=== PATIENT | male | born 2000 | race Hispanic/Latino ===

== ENCOUNTER 2020-08-13 21:59 | Emergency (ER) | payer OTHER ==
[2020-08-13] MEDS ORDERED: DiphenhydrAMINE HCL 50 MG/ML VIAL ONE (22:53)
[2020-08-13] MEDS ORDERED: HYDROXYZINE HCL 25 MG TABLET ONE (22:54)
== END 2020-08-13 23:13 | disposition home or self-care (01) ==
LOC: EDH 21:59
DX: F41.1 Generalized anxiety disorder (principal)
CPT/HCPCS: 96372; 99283; J1200

== ENCOUNTER 2024-05-08 17:20 | Emergency (ER) | payer SELFPAY ==
[~2024-05-08] VITALS: Ht 175.3 cm; Wt 81.6 kg
[2024-05-08 18:09] LABS: BASOPHILS # (AUTO) 0.03 K/uL (0.00-0.20); BASOPHILS % (AUTO) 0.5 % (0.0-5.0); EOSINOPHILS # (AUTO) 0.03 K/uL (0.00-0.70); EOSINOPHILS % (AUTO) 0.5 % (0.0-8.0); HEMATOCRIT 48.4 % (42-54); IMMATURE GRANULOCYTE ABSOLUTE 0.02 K/uL (0-1); LYMPHOCYTES # (AUTO) 1.5 K/uL (1.0-4.8); LYMPHOCYTES % (AUTO) 24.4 % (21.0-51.0); MEAN CORPUSCULAR HEMOGLOBIN 29.9 pg (27.0-33.0); MEAN CORPUSCULAR HGB CONC 34.7 g/dL (32.0-36.0); MEAN CORPUSCULAR VOLUME 86.3 fL (79-99); MONOCYTES # (AUTO) 0.4 K/uL (0.1-1.0); MONOCYTES % (AUTO) 6.5 % (3.0-13.0); NEUTROPHILS # (AUTO) 4.2 K/uL (1.8-7.7); NEUTROPHILS % (AUTO) 67.8 % (40.0-77.0); PLATELET COUNT (AUTO) 244 K/uL (130-400); RED BLOOD CELL COUNT(AUTO) 5.61 MIL/uL (4.50-6.20); RED CELL DISTRIBUTION WIDTH 12.8 % (11.0-15.5); WHITE BLOOD COUNT (AUTO) 6.2 K/uL (4.8-10.8)
[2024-05-08 18:16] LABS: CREATININE 0.9 mg/dL (0.5-1.3)
[2024-05-08] MEDS: ondanSETRON 4MG INJ IVP STA (18:44)
[2024-05-08] MEDS: leveTIRACEtam 500 MG/5 ML SD VIAL IV STA (19:17)
[2024-05-08 19:42] VITALS: BP 122/65; PULSE 76; RESP 16; TEMP 98.1; O2SAT 97
== END 2024-05-08 19:56 | disposition home or self-care (01) ==
LOC: EDH 17:20
DX: R56.9 Unspecified convulsions (principal); Z91.199 Patient's noncompliance with other medical treatment and regimen due to unspecified reason
CPT/HCPCS: 99284; 96365; 96375; 80048; 85025; 36415; J1953; J2405